=== PATIENT | male | born 1980 ===

== ENCOUNTER → 2020-06-04 11:30 | Outpatient (CLI) | payer MEDICARE, SELFPAY ==
[2020-06-05 18:30] LABS: COVID19 Sendout Not Detected (Not Detected)
== END ==
PROVIDERS: Visit Provider Physician Assistant
DX: Z11.59 Encounter for screening for other viral diseases (principal)
CPT/HCPCS: 87635

== ENCOUNTER → 2020-08-08 16:05 | Outpatient (CLI) | payer MEDICARE, SELFPAY ==
[2020-08-08 16:42] LABS: Add Manual Diff / Slide Review NO; Basophils Absolute Auto 0 /uL (0-100); Basophils Percent Auto 0.4 % (0-2); Eosinophils Absolute Auto 0 /uL (0-450); Eosinophils Percent Auto 0.7 % (2-4); Hematocrit 50.8 % (41-53); Hemoglobin 17.2 g/dL (13.5-17.5); Lymphocytes Absolute Auto 1600 /uL (1100-4500); Lymphocytes Percent Auto 26.9 % (25-40); Mean Corpuscular HGB Conc 33.9 % (30-36); Mean Corpuscular Hemoglobin 31.3 PG (26-34); Mean Corpuscular Volume 92.3 fL (80-100); Monocytes Absolute Auto 500 /uL (0-900); Monocytes Percent Auto 8.8 % (3-14); Neutrophils Absolute Auto 3700 /uL (1500-7000); Neutrophils Percent Auto 63.2 % (50-75); Platelet Count 228 X10^3/uL (150-400); Red Cell Distribution Width 13.2 % (11.6-14.8); White Blood Cell Count 5.8 X10^3/uL (4.5-11.0)
[2020-08-08 16:55] LABS: Appearance Urine UA CLEAR; Bilirubin Urine UA NEGATIVE (NEGATIVE); Color Urine UA YELLOW; Glucose Urine UA 1+ g/dL (Negative); Ketones Urine UA NEGATIVE (NEGATIVE); Leukocyte Esterase Urine UA NEGATIVE (NEGATIVE); Nitrite Urine UA NEGATIVE (Negative); Occult Blood Urine UA NEGATIVE (Negative); Protein Urine UA NEGATIVE (Negative); Specific Gravity Urine UA >=1.030 (1.000-1.035); Urobilinogen Urine UA 0.2 E.U./dL (0.2); pH Urine UA 5.5 (4.5-8.0)
[2020-08-08 17:03] LABS: Hemoglobin A1C% w Est Avg Glu 6.6 % (4.0-6.0)
[2020-08-08 17:07] LABS: Alanine Aminotransferase 34 IU/L (<50); Albumin 4.5 g/dL (3.5-5.0); Albumin Globulin Ratio 1.4 (1.0-2.8); Alkaline Phosphatase 68 U/L (38-126); Aspartate Aminotransferase 30 IU/L (17-59); BUN Creatinine Ratio 24.2 (6-22); Bilirubin Total 0.5 mg/dL (0.2-1.3); Blood Urea Nitrogen 24 mg/dL (9-20); Calcium 9.4 mg/dL (8.4-10.2); Carbon Dioxide 30 mmol/L (22-32); Chloride 103 mmol/L (98-107); Estimated Glomerular Filt Rate > 60.0 mL/min (>60); Globulin 3.2 g/dL (1.7-4.1); Glucose 116 mg/dL (70-100); HEMOLYSIS < 15 (0-50); Potassium 4.3 mmol/L (3.4-5.1); Sodium 139 mmol/L (137-145); Total Protein 7.7 g/dL (6.3-8.2)
[2020-08-08 17:31] LABS: TSH w/ Reflex to FT4 1.49 uIU/mL (0.47-4.68)
== END ==
PROVIDERS: PCP Family Medicine; Referring Provider Family Medicine; Visit Provider Family Medicine
DX: F98.8 Other specified behavioral and emotional disorders with onset usually occurring in childhood and adolescence (principal); I10 Essential (primary) hypertension; R73.03 Prediabetes
CPT/HCPCS: 36415; 80053; 81003; 83036; 84443; 85025

== ENCOUNTER → 2020-10-30 09:01 | Outpatient (CLI) | payer MEDICARE, SELFPAY ==
--- NOTE | 2020-10-30 10:40 | DIET.PN ---
Diabetes Intake: Initial Assessment Assess: Mr. Spicer is a 40 yom referred for newly diagnosed type 2 diabetes. He has recent hx of HTN w/ tachycardia. Started on metoprolol with some improvement. He reports 2 fainting episodes with some dizziness and frequent tingling in his hands. He does not have a glucometer at this time. He has made significant changes to eating habits since diagnosis including elimination of sugary sweetened beverages, sugar additives and regular consumption of fast food. He does not exercise and admits he does not want to. His is present for today?s appt. She feels he has made good changes, but still eats too much. Pt lives with his brother who cares for him; however patient is able to shop and cook for himself. Labs: Per pt report: A1c: 6.6 Meds: metoprolol Diet: per 24 hr recall: B: cheerios, banana, 2% milk L: chicken and rice D: lean cuisine; crockpot rice, beans, veggies, chicken Sn: apple, cheese or peanuts; popcorn Wt: 138lb Ht: 60in BMI: 27 BP: 138/88 DX: Altered nutrition related laboratory values related to impaired glucose metabolism, lack of previous exposure to nutrition information as evidenced by pt report, diagnosis of diabetes, previous diet high in refined carbohydrates. Intervention: 1. Completed intake assessment. Discussed barriers to care. 2. Discussed pathophysiology of diabetes. Reviewed A1c and its correlation to blood glucose numbers. Discussed recommended BG ranges. 3. Discussed importance of self-monitoring, how often, and when to check. 4. Reviewed hyper/hypoglycemia and treatment. 5. Reviewed safe disposal of equipment (strip/lancets/insulin needles). 6. Created SMART goals for pt self-care and success. 7. Discussed program curriculum outline and class needs based on individual goals. Note: Pt will keep a food and activity record for 1 week. Goal to exercise 3 x/ 30 min. SMART Goals: 1. Pt goal weight of 120-130 through learning carb counting, portion control, label reading, and exercising 30 min/day 5-6 d/wk. Monitor/Evaluate: Pt will attend full DSME program. Basic Nutrition class scheduled for Nov 06.
== END ==
PROVIDERS: PCP Family Medicine; Referring Provider Family Medicine; Visit Provider Family Medicine
DX: E11.9 Type 2 diabetes mellitus without complications (principal); I10 Essential (primary) hypertension; R00.0 Tachycardia, unspecified; Z71.3 Dietary counseling and surveillance; Z68.27 Body mass index [BMI] 27.0-27.9, adult
CPT/HCPCS: G0108

== ENCOUNTER → 2020-11-06 09:04 | Outpatient (CLI) | payer MEDICARE, SELFPAY ==
--- NOTE | 2020-11-06 10:06 | DIET.PN ---
Diabetes: Healthy Eating 1 Intervention: ? Discussed pathophysiology of diabetes and impact of nutrition/diet on blood sugar control.? Discussed fed versus non-fed state.?? ? Reviewed importance of Balance, Variety, and Moderation. ? Discussed the effect of carbohydrates/protein/fat on blood sugar control.? ? Stressed importance of consistent carbohydrate intake at each meal and provided instructions for recommended servings/portions of carbohydrates/protein per meal. Provided educational material. ? Reviewed carbohydrate counting and measuring carbohydrate content via serving sizes and reading nutrition labels.? Provided handouts.?? ? Discussed the difference between simple versus complex carbohydrates and the effect of fiber on blood sugar control.? Discussed various methods to increase fiber content in diet. ? Discussed the plate method for creating more carbohydrate conscious balanced meals. ? Stressed importance of meal timing and not going >4-5 hours between meals. Encouraged adding protein to evening snack to support glucose control overnight. ? Discussed importance of making dietary habits part of lifestyle change.
== END ==
PROVIDERS: PCP Family Medicine; Referring Provider Family Medicine; Visit Provider Family Medicine
DX: E11.9 Type 2 diabetes mellitus without complications (principal); Z71.3 Dietary counseling and surveillance
CPT/HCPCS: G0109

== ENCOUNTER → 2021-01-20 10:01 | Outpatient (CLI) | payer MEDICARE, SELFPAY | PROVIDERS: PCP Family Medicine; Referring Provider Family Medicine; Visit Provider Family Medicine | DX: E11.9 Type 2 diabetes mellitus without complications (principal); Z71.3 Dietary counseling and surveillance | CPT/HCPCS: G0109 ==

== ENCOUNTER → 2021-02-03 09:42 | Outpatient (CLI) | payer MEDICARE, SELFPAY ==
[2021-02-03 10:26] LABS: Alanine Aminotransferase 40 IU/L (<50); Albumin 4.4 g/dL (3.5-5.0); Albumin Globulin Ratio 1.5 (1.0-2.8); Alkaline Phosphatase 67 U/L (38-126); Aspartate Aminotransferase 37 IU/L (17-59); BUN Creatinine Ratio 19.6 (6-22); Bilirubin Total 0.3 mg/dL (0.2-1.3); Blood Urea Nitrogen 19 mg/dL (9-20); Calcium 9.2 mg/dL (8.4-10.2); Carbon Dioxide 29 mmol/L (22-32); Chloride 102 mmol/L (98-107); Estimated Glomerular Filt Rate > 60.0 mL/min (>60); Globulin 2.9 g/dL (1.7-4.1); Glucose 172 mg/dL (70-100); HEMOLYSIS < 15 (0-50); Hemoglobin A1C% w Est Avg Glu 6.1 % (4.0-6.0); Potassium 4.2 mmol/L (3.4-5.1); Sodium 137 mmol/L (137-145); Total Protein 7.3 g/dL (6.3-8.2)
--- NOTE | 2021-02-03 11:22 | DIET.PN ---
DIABETES Nutrition Initial Assessment:? ASSESS:?? Mr. Spicer is a 40 yom?referred for type 2 diabetes seen as part of DSME program. He has been monitoring his fasting and evening glucose occasionally. He admits has not been following his eating plan for the last few months. Has gone back to soda, juice, cookies, and candy. He has a gym membership, but only goes a few times a month for a few minutes. His mother joins him today frustrated with his lack of motivation for improving his health. New labs were completed today. ??? LABS: Per pt report:? A1c: 6.6 ? MEDS:??no change ? DIET: Per 24-hour recall:? B: waffles, banana, milk L: chicken with rice D: lean cuisine; subway sandwich Sn: popcorn, cookies, candy Eating Out: commissary several times/ wk Changes in Appetite: larger portions Nutrition Supplements: na ? Weight: 141lb Height: 60in BMI: ? 27.5 ? Exercise:? rarely NUTRITION DX 1. Altered Nutrition related labs related to impaired glucose metabolism, lack of previous exposure to accurate nutrition information as evidenced by pt report, dx of diabetes, previous diet high in refined carbohydrates.? INTERVENTION(s): 1. Reviewed pathophysiology of diabetes and impact of nutrition/diet on blood sugar control.? Discussed fed versus non-fed state.?? 2. Discussed the effect of carbohydrates/protein/fat on blood sugar control.? Stressed importance of consistent carbohydrate intake at each meal and provided instructions for recommended servings/portions of carbohydrates/protein per meal. Provided pt with educational material. 3. Reviewed carbohydrate counting and measuring carbohydrate content via serving sizes and reading nutrition labels.? Provided handouts.?? 4. Discussed the difference between simple versus complex carbohydrates and the effect of fiber on blood sugar control.? Discussed various methods to increase fiber content in diet. 5. Stressed importance of meal timing and not going >4-5 hours between meals. Encouraged adding protein to evening snack to support glucose control overnight. Patient agreeable. 6. Discussed healthy weight loss goals of 1-2lbs per week through diet and exercise.? Pt agreeable to walking at least 30 minutes daily. 7. Recommend monitoring fasting and alternating 2 hr PP mealtime glucose. MONITOR/EVALUATE: Anticipate fair compliance. Pt will f/u after new labs.
== END ==
PROVIDERS: PCP Family Medicine; Referring Provider Family Medicine; Visit Provider Family Medicine
DX: F98.8 Other specified behavioral and emotional disorders with onset usually occurring in childhood and adolescence (principal); I10 Essential (primary) hypertension; E11.9 Type 2 diabetes mellitus without complications
CPT/HCPCS: 36415; 80053; 83036; G0109

== ENCOUNTER → 2021-02-11 10:59 | Outpatient (CLI) | payer MEDICARE, SELFPAY ==
[2021-02-11] MEDS: COVID-19 VACC, Ad26(JANSSEN)/PF 0.5 ML IM (11:08)
== END ==
PROVIDERS: PCP Family Medicine; Visit Provider Internal Medicine
DX: Z23 Encounter for immunization (principal)
CPT/HCPCS: 0031A; 91303

== ENCOUNTER → 2021-05-27 10:06 | Outpatient (CLI) | payer MEDICARE, SELFPAY ==
[2021-05-27 11:37] LABS: Alanine Aminotransferase 49 IU/L (<50); Albumin 4.7 g/dL (3.5-5.0); Albumin Globulin Ratio 1.7 (1.0-2.8); Alkaline Phosphatase 62 U/L (38-126); Aspartate Aminotransferase 39 IU/L (17-59); BUN Creatinine Ratio 19.4 (6-22); Bilirubin Total 0.5 mg/dL (0.2-1.3); Blood Urea Nitrogen 19 mg/dL (9-20); Calcium 9.9 mg/dL (8.4-10.2); Carbon Dioxide 30 mmol/L (22-32); Chloride 100 mmol/L (98-107); Estimated Glomerular Filt Rate > 60.0 mL/min (>60); Globulin 2.7 g/dL (1.7-4.1); Glucose 145 mg/dL (70-100); HEMOLYSIS < 15 (0-50); Potassium 4.4 mmol/L (3.4-5.1); Sodium 139 mmol/L (137-145); Total Protein 7.4 g/dL (6.3-8.2)
[2021-05-27 11:56] LABS: Hemoglobin A1C% w Est Avg Glu 6.7 % (4.0-6.0)
== END ==
PROVIDERS: PCP Family Medicine; Referring Provider Family Medicine; Visit Provider Family Medicine
DX: E11.9 Type 2 diabetes mellitus without complications (principal); I10 Essential (primary) hypertension
CPT/HCPCS: 36415; 80053; 83036

== ENCOUNTER → 2021-11-16 10:06 | Outpatient (CLI) | payer OTHER, SELFPAY ==
[2021-11-16 12:43] LABS: Hemoglobin A1C% w Est Avg Glu 8.1 % (4.0-6.0)
[2021-11-16 13:35] LABS: Alanine Aminotransferase 37 IU/L (<50); Albumin 4.8 g/dL (3.5-5.0); Albumin Globulin Ratio 1.5 (1.0-2.8); Alkaline Phosphatase 63 U/L (38-126); Aspartate Aminotransferase 34 IU/L (17-59); BUN Creatinine Ratio 17.2 (6-22); Bilirubin Total 0.6 mg/dL (0.2-1.3); Blood Urea Nitrogen 17 mg/dL (9-20); Carbon Dioxide 24 mmol/L (22-32); Chloride 103 mmol/L (98-107); Estimated Glomerular Filt Rate > 60.0 mL/min (>60); Globulin 3.3 g/dL (1.7-4.1); Glucose 151 mg/dL (70-100); HEMOLYSIS < 15 (0-50); Potassium 3.9 mmol/L (3.4-5.1); Sodium 137 mmol/L (137-145); Total Protein 8.1 g/dL (6.3-8.2)
== END ==
PROVIDERS: PCP Family Medicine; Referring Provider Family Medicine; Visit Provider Family Medicine
DX: E11.9 Type 2 diabetes mellitus without complications (principal); I10 Essential (primary) hypertension
CPT/HCPCS: 36415; 80053; 83036

== ENCOUNTER → 2022-02-25 09:12 | Outpatient (CLI) | payer OTHER, SELFPAY ==
--- NOTE | 2022-02-25 11:17 | DIAB.MNT ---
Initial Diabetes Medical Nutrition Therapy Assessment Name: Jaleel Spicer Date: 02/25/22 Time: 918-265o Dx: Type II Diabetes Provider: Riaz Marmolejo presents for initial visit regarding T2DM. Jaleel has PMH of cognitive impairment. Has worked with previous [facility] and attended classes. Has base knowledge of what impacts BG, but could benefit from additional education regarding carb foods, portions, and exercise/phys activity. 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 Supportive parents. Lives with brother. States he thinks he just needs to eat less. Diet recall indicates potential for high carb intake with beverage choices and cereal. Diet Recall: 8a: cereal, milk 1p: salad 3p: soup, chicken, 2 crackers 8p: chicken, 1/2c mac 830p: 4-6c popcorn Beverages: water, 1x per week juice, coffee with greenlandic vanilla creamer x 4 Anthropometrics: Ht: 5' Wt: 148# reported Weight history: highest wt 156# reportedly Physical Activity: No program. States his parents want him to go to the gym, but he does not want to go. Enjoys walking the beach or biking on days off sometimes. Has 60 min work break, sits most of the time. Self-Monitoring Blood Glucose: H/o SMBG, but not currently checking consistently. Did not bring log book or meter. States BG often 90-150 mg/dL. Diabetes Medications: 500 mg Metformin BID -- denies SE Pertinent Labs: Recent HgA1c 8.1% Past Medical History: (Last Updated 12/30/21 @ 10:27 by Aaron Mello, DO) ADD (attention deficit disorder) Chicken pox Child Epididymitis Hypertension Pre-diabetes Tachycardia Type 2 diabetes mellitus Nutrition Rx: Plate Method Nutrition Diagnosis: - Predicted excessive CHO intake r/t nutrition knowledge deficit aeb diet recall and pt report - physical inactivity r/t stage of change aeb pt report - Self monitoring deficit r/t infrequent SMBG aeb pt report Intervention: This participant was very receptive. Provided appropriate educational handouts. Discussed the following topics: Completed intake assessment. SMBG plan Plate Method, which foods are carbs or protein, keeping carbs to 1c or less at meals Recommended servings for carbohydrates at meals and snacks Role of physical activity and easy/enjoyable ways to increase activity Created SMART goals for patient self-care and success. Goals: Check BG before eating each morning Bring BG next visit Measure cereal in morning Walk 10 min on lunch break Follow-up: GLYNN MOSER follow-up in 2-3 weeks Pam Victoria RDN, BJES Certified Diabetes Care and Sewer And Cutter Finger [employer] Material P: [phone] Thank you for this referral
== END ==
PROVIDERS: PCP Family Medicine; Referring Provider Family Medicine; Visit Provider Family Medicine
DX: E11.9 Type 2 diabetes mellitus without complications (principal); Z79.84 Long term (current) use of oral hypoglycemic drugs; Z71.3 Dietary counseling and surveillance
CPT/HCPCS: 97802

== ENCOUNTER → 2022-03-11 08:39 | Outpatient (CLI) | payer OTHER, SELFPAY ==
--- NOTE | 2022-03-16 11:01 | DIAB.MNTFU ---
Follow-up Diabetes Medical Nutrition Therapy Assessment Name: Jaleel Spicer Date: 03/11/22 Time: 668-790c Dx: Type II Diabetes Jaleel presents for follow-up regarding T2Dm. States he has started checking fasting numbers (see below). Diet recall indicates most carb portions in goal, but limited protein intake. Though he reports some wt loss, according to EMR he has wt gain over the last year. +16# gain over the last year, likely impacting insulin resistance. Reports limited veggies and water intake. Jaleel was late to todays appt which cut our visit short. Anthropometrics: Ht: Wt: Weight history: 11/16/21 153.7# 05/27/21 152.1# 02/03/21 138.2# 10/30/20 137.7# Physical Activity: No program. Showing interest in going to the gym regularly. Self-Monitoring Blood Glucose: FB, 214, 178, 225 Diabetes Medications: 500 mg Metformin BID -- denies SE Pertinent Labs: Recent HgA1c 8.1% Past Medical History: (Last Updated 12/30/21 @ 10:27 by Aaron Mello DO) ADD (attention deficit disorder) Chicken pox Child Epididymitis Hypertension Pre-diabetes Tachycardia Type 2 diabetes mellitus Nutrition Rx: Plate Method Nutrition Diagnosis: - Predicted excessive CHO intake r/t nutrition knowledge deficit aeb diet recall and pt report- improved - physical inactivity r/t stage of change aeb pt report- in progress - Self monitoring deficit r/t infrequent SMBG aeb pt report- improved Intervention: This participant was very receptive. Provided appropriate educational handouts. Discussed the following topics: Blood sugar review and impact of food and physical activity Plate Method review Physical activity plan and progress Created SMART goals for patient self-care and success. 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
== END ==
PROVIDERS: PCP Family Medicine; Referring Provider Family Medicine; Visit Provider Family Medicine
DX: E11.9 Type 2 diabetes mellitus without complications (principal); Z71.3 Dietary counseling and surveillance; Z79.84 Long term (current) use of oral hypoglycemic drugs
CPT/HCPCS: 97803

== ENCOUNTER → 2022-04-01 09:09 | Outpatient (CLI) | payer OTHER, SELFPAY ==
--- NOTE | 2022-04-01 17:25 | DIAB.FU ---
Follow-up Diabetes Education Assessment Name: Jaleel Spicer Date: 04/01/22 Time: [id number] Dx: Type II Diabetes Preferred Learning Style: Hands-on / doing Jaleel presents today for follow-up with his mother, Heena. Heena is very concerned about his diabetes and self care. She reports he is not exercises, eats junk food, seems indifferent about making changes, and is not grooming himself or keeping his home clean, ie mold in bathtub. Reports he may need to live in a fdc, which he is opposed to. Jaleel states he has been trying to be more active, but will sometimes get bored with activity. 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 Physical Activity: gym 3-4 x in the last month reported. Sometimes basketball for <30min Self-Monitoring Blood Glucose: None, last visit consistently elevated FBG. Diabetes Medications: 500 mg Metformin BID Pertinent Labs: Recent HgA1c 8.1% Past Medical History: (Last Updated 12/30/21 @ 10:27 by Aaron Mello DO) ADD (attention deficit disorder) Chicken pox Child Epididymitis Hypertension Pre-diabetes Tachycardia Type 2 diabetes mellitus Intervention: This participant was very receptive. Provided appropriate educational handouts. Discussed the following topics: Nutrition recommendations, avoiding processed snacks Physical activity plan and impact on blood sugars Developed a 6 day physical activity plan of activities he enjoys, 30 min per day Impact of hyperglycemia on quality of life and longevity Ability for him to care for himself and home and how this may impact health Created SMART goals for patient self-care and success. Goals: Start going to the gym each week- not met supervisor pit and auxiliaries celery sticks for snacks- met Drink 3 x16 oz water per day- in progress Exercise every day (gym, walks, bike) - not met Exercise 6 days per week 20-30 min per day- new Keep up on personal hygiene- new Follow-up: GLYNN MOSER follow-up in 3 weeks Given Jaleel' HgA1c and potential for lifestyle changes, he may benefit from increased Metformin dose. Will cont to evaluate. Pam Victoria, GLYNN, SHANTI Certified Diabetes Care and Box Sealing Inspector P: [phone] Thank you for this referral
== END ==
PROVIDERS: PCP Family Medicine; Referring Provider Family Medicine; Visit Provider Family Medicine
DX: E11.9 Type 2 diabetes mellitus without complications (principal); Z71.3 Dietary counseling and surveillance; Z79.84 Long term (current) use of oral hypoglycemic drugs
CPT/HCPCS: G0109

== ENCOUNTER → 2022-04-22 09:28 | Outpatient (CLI) | payer OTHER, SELFPAY ==
--- NOTE | 2022-04-22 17:40 | DIAB.FU ---
Follow-up Diabetes Education Assessment Name: Jaleel Spicer Date: 04/22/22 Time: 930-10a Dx: Type II Diabetes Jaleel presents for T2Dm follow-up. Reports being more conscious of self-care, including hygiene and avoiding junk food. States he wants to eat more vegetables, specifically more carrots. Also enjoys cheese/ nut snack packs, but states he cannot find them in the grocery stores. In review of food documentation, no snacks have been documented. Meals seem to have adequate carb, possible excessive intake on some foods, ie rice. Plans to keep a more detailed food journal for review next visit. Reports motivation for managing DM is not dying and not losing eye sight. This is notable since his mother has voiced that she feels he does not care. Physical Activity: He has increased activity by attending gym 2 x per week and walking 4 x per week. Some basketball. Self-Monitoring Blood Glucose: Brought a few FB, 186 mg/dL. In discussing potential for increasing Metformin with provider, he is not very happy about this. Per PCP note, provider wanted to see him back in 4-6 weeks. Jaleel is overdue for follow-up. Enc him to call provider office to schedule. Diabetes Medications: 500 mg Metformin BID Pertinent Labs: Recent HgA1c 8.1% Past Medical History: (Last Updated 12/30/21 @ 10:27 by Aaron Mello DO) ADD (attention deficit disorder) Chicken pox Child Epididymitis Hypertension Pre-diabetes Tachycardia Type 2 diabetes mellitus Intervention: This participant was very receptive. Provided appropriate educational handouts. Discussed the following topics: Recent blood sugar results and goals Medication management, potential for increases to meet goals Review of general nutrition recommendations and current intake food portions and using reference objects, ie fist, open palm, plate method Physical activity plan and impact on blood sugars Prevention of complications with well managed BG Created SMART goals for patient self-care and success. Goals: Exercise 6 days per week 20-30 min per day- met Keep up on personal hygiene- in progress Look for P3 snack packs at [employer]- new Keep journal with food, exercise, and BG- new Follow-up: GLYNN MOSER follow-up in 2 weeks Pam Victoria RDN, SHANTI Certified Diabetes Care and Congressional Assistant P: [phone] Thank you for this referral
== END ==
PROVIDERS: PCP Family Medicine; Referring Provider Family Medicine; Visit Provider Family Medicine
DX: E11.9 Type 2 diabetes mellitus without complications (principal); Z71.3 Dietary counseling and surveillance; Z79.84 Long term (current) use of oral hypoglycemic drugs
CPT/HCPCS: G0108

== ENCOUNTER → 2022-05-06 08:30 | Outpatient (CLI) | payer OTHER, SELFPAY ==
--- NOTE | 2022-05-19 17:12 | DIAB.MNTFU ---
Addendum entered by Pam Victoria 05/20/22 09:32: Did not realize his Metformin was rx'd for 1000mg pills vs 500mg. Currently rx'd max dose for med, but not taking appropriately. See note for 05/20/22. Original Note: Follow-up Diabetes Medical Nutrition Therapy Assessment Name: Jaleel Spicer Date: 05/06/22 Time: 840-940a Dx: Type II Diabetes Jaleel presents today with his mother, Heena. State he has been walking at the park more often. Was not able to keep a food journal. Heena reports continued concerns about hygiene and his lazy behavior. Reports rice and chicken at dinner recently. Not measuring portions. Heena reports he is eating on the floor in his room. Reports food stashed under his bed. Claims he may still be binging on chips, he denies this. Purchased P3 snacks but has not had them for snacks yet. Anthropometrics: Ht: Wt: 153# weight hx: 11/16/21 153.7# 05/27/21 152.1# 02/03/21 138.2# 10/30/20 137.7# Physical Activity: Reports walking the beach everyday after work. Self-Monitoring Blood Glucose: Did not bring BG readings. Reports FBG of 155 and 170 mg/dL. Diabetes Medications: 500 mg Metformin BID Pertinent Labs: Recent HgA1c 8.1% Past Medical History: (Last Updated 12/30/21 @ 10:27 by Aaron Mello DO) ADD (attention deficit disorder) Chicken pox Child Epididymitis Hypertension Pre-diabetes Tachycardia Type 2 diabetes mellitus Nutrition Rx: Plate Method Nutrition Diagnosis: - Predicted excessive CHO intake r/t nutrition knowledge deficit and distracted eating aeb Heena and pt report - physical inactivity r/t stage of change aeb pt report- improved - Self monitoring deficit r/t infrequent SMBG aeb pt report- in progress Intervention: This participant was very receptive. Provided appropriate educational handouts. Discussed the following topics: Plate Method and portions review using reference objects and measuring cups. Importance of SMBG Physical activity plan and progress Keeping a food journal for review. Impact of distracted eating Created SMART goals for patient self-care and success. Impression: Heena is convinced that Jaleel is very capable of making lifestyle changes for DM but that he is lazy. She seems to employ some tough love tactics in this RD's opinion. She also voices that he may need to be on behavioral medications. It seems he is having difficulty managing food choices on his own. He was managing better when he lived closer to his parents per report. Seems he may benefit from increasing Metformin. Progress on lifestyle change may be limited and/or slow. Today we did discuss that no one can make him implement changes. He has to choose to make changes to diet with DM ed support. He and Heena verbalized understanding. RD has informed PCP of this dynamic. Goals: Look for P3 snack packs at [employer]- met Keep journal with food, exercise, and BG- not met Try having breakfast at dining table Keep food journal for one week Measure carbs 1c at dinner Walk daily Follow-up: GLYNN MOSER follow-up in 2-3 weeks. Pam Victoria RDN, BJES Certified Diabetes Care and Bridge Welder P: [phone] Thank you for this referral
== END ==
PROVIDERS: PCP Family Medicine; Referring Provider Family Medicine; Visit Provider Family Medicine
DX: E11.9 Type 2 diabetes mellitus without complications (principal); Z71.3 Dietary counseling and surveillance
CPT/HCPCS: 97803

== ENCOUNTER → 2022-05-20 09:02 | Outpatient (CLI) | payer OTHER, SELFPAY ==
--- NOTE | 2022-06-02 11:03 | DIAB.MNTFU ---
Follow-up Diabetes Medical Nutrition Therapy Assessment Name: Jaleel Spicer Date: 05/20/22 Time: a Dx: Type II Diabetes Jaleel presents for nutrition check-in for T2DM. He brings his food and BG log. Has increased veggie intake with carrots. Reports he has run out of BG testing strips and plans to buy them out of pocket. Today we called his pharmacy and confirmed an rx ready for pickup driver for 100 strips for 3 months. He plans to pick them up today. Per food journal: B: cereal or eggs and waffles sn: nothing or carrots L: PBJ and carrots or hotdog and carrots D: rice and chicken or pasta or cottage cheese or sandwich Anthropometrics: Wt: 151# today at home weight hx: 11/16/21 153.7# 05/27/21 152.1# 02/03/21 138.2# 10/30/20 137.7# Physical Activity: per journal walking park or beach 3-4 x per week. Reports aiming for daily walks. Self-Monitoring Blood Glucose: Still elevated FBG. Recent readings below. 169, 168, 224, 211, 186, 170, 191, 192, 226, 188 Diabetes Medications: 1000 mg Metformin BID (thought he was taking 500 mg BID previously but rx'd max dose). Currently only taking once per day though. Takes Metformin in the morning and Metoprolol at night. Encouraged him to take Metformin BID. Pertinent Labs: Recent HgA1c 8.1% Past Medical History: (Last Updated 12/30/21 @ 10:27 by Aaron Mello DO) ADD (attention deficit disorder) Chicken pox Child Epididymitis Hypertension Pre-diabetes Tachycardia Type 2 diabetes mellitus Nutrition Rx: Plate Method: 1c carbs, 3-4oz pro, 1/2 plate veggie Nutrition Diagnosis: - Predicted excessive CHO intake r/t nutrition knowledge deficit and distracted eating aeb Heena and pt report- in progress - physical inactivity r/t stage of change aeb pt report- improved - Self monitoring deficit r/t running out of strips aeb pt report- new Intervention: This participant was very receptive. Provided appropriate educational handouts. Discussed the following topics: BG trends in the morning Progress with vegetables Troubleshooting for SMBG supplies with pharmacy Physical activity plan and progress Created SMART goals for patient self-care and success. Goals: Keep journal with food, exercise, and BG- met Try having breakfast at dining table- met Keep food journal for one week - met Measure carbs 1c at dinner- in progress Walk daily - 75% met Take Metformin BID- new Follow-up: GLYNN MOSER follow-up 4 weeks Pam Victoria RDN, CDCES Certified Diabetes Care and Teacher Private P: [phone] Thank you for this referral
== END ==
PROVIDERS: PCP Family Medicine; Referring Provider Family Medicine; Visit Provider Family Medicine
DX: E11.9 Type 2 diabetes mellitus without complications (principal); Z71.3 Dietary counseling and surveillance
CPT/HCPCS: 97803

== ENCOUNTER → 2022-08-19 09:21 | Outpatient (CLI) | payer OTHER, SELFPAY ==
[2022-08-19 10:16] LABS: Hemoglobin A1C% w Est Avg Glu 7.3 % (4.0-6.0)
[2022-08-19 10:36] LABS: Alanine Aminotransferase 32 IU/L (<50); Albumin 4.7 g/dL (3.5-5.0); Albumin Globulin Ratio 1.7 (1.0-2.8); Alkaline Phosphatase 68 U/L (38-126); Aspartate Aminotransferase 26 IU/L (17-59); BUN Creatinine Ratio 14.8 (6-22); Bilirubin Total 0.5 mg/dL (0.2-1.3); Blood Urea Nitrogen 17 mg/dL (9-20); Calcium 9.5 mg/dL (8.4-10.2); Carbon Dioxide 30 mmol/L (22-32); Chloride 101 mmol/L (98-107); Estimated Glomerular Filt Rate > 60 mL/min (>60); Globulin 2.8 g/dL (1.7-4.1); Glucose 132 mg/dL (70-100); HEMOLYSIS < 15 (0-50); Sodium 139 mmol/L (137-145); Total Protein 7.5 g/dL (6.3-8.2)
== END ==
PROVIDERS: PCP Family Medicine; Referring Provider Family Medicine; Visit Provider Family Medicine
DX: E11.9 Type 2 diabetes mellitus without complications (principal)
CPT/HCPCS: 36415; 80053; 83036

== ENCOUNTER → 2022-12-31 09:18 | Outpatient (CLI) | payer OTHER, SELFPAY ==
[2022-12-31 11:06] LABS: Alanine Aminotransferase 33 IU/L (<50); Albumin 4.5 g/dL (3.5-5.0); Albumin Globulin Ratio 1.4 (1.0-2.8); Alkaline Phosphatase 74 U/L (38-126); Aspartate Aminotransferase 26 IU/L (17-59); Bilirubin Total 0.6 mg/dL (0.2-1.3); Blood Urea Nitrogen 13 mg/dL (9-20); Calcium 9.7 mg/dL (8.4-10.2); Carbon Dioxide 28 mmol/L (22-32); Chloride 99 mmol/L (98-107); Cholesterol 306 mg/dL (140-199); Estimated Glomerular Filt Rate > 60 mL/min (>60); Globulin 3.2 g/dL (1.7-4.1); Glucose 206 mg/dL (70-100); HDL Cholesterol 40 mg/dL (40-60); HEMOLYSIS < 15 (0-50); LDL Cholesterol Calculated 204 mg/dL (<100); Potassium 4.3 mmol/L (3.4-5.1); Sodium 139 mmol/L (137-145); Total Protein 7.7 g/dL (6.3-8.2); Triglycerides 309 mg/dL (35-150)
[2023-01-01 06:08] LABS: Labcorp Hemoglobin (Hb) A1c 8.3 % (4.8-5.6)
== END ==
PROVIDERS: PCP Family Medicine; Referring Provider Family Medicine; Visit Provider Family Medicine
DX: E11.9 Type 2 diabetes mellitus without complications (principal); I10 Essential (primary) hypertension
CPT/HCPCS: 36415; 80053; 80061; 83036

== ENCOUNTER → 2025-03-12 16:26 | Outpatient (CLI) | payer OTHER, SELFPAY ==
--- NOTE | 2025-03-12 16:33 | DI.RAD.S_ITS ---
PROCEDURE: XR CHEST 2V INDICATIONS: ERYTHROCYTOSIS, HYPOXEMIA TECHNIQUE: 2 views of the chest were acquired. COMPARISON: None. FINDINGS: Heart, mediastinum and pulmonary vascular: Heart is normal in size and configuration. Mediastinum is unremarkable. Pulmonary vascular is normal. Lungs: Clear Pleural spaces: Normal-no effusions or pneumothorax. Bones and soft tissues: Normal IMPRESSION: Normal chest. Dictated by: Jake Marie M.D. on 03/14/2025 at 12:31 Approved by: Jake Marie M.D. on 03/14/2025 at 12:31
== END ==
LOC: RAD 16:32
PROVIDERS: PCP Family Medicine; Referring Provider Family Medicine; Visit Provider Family Medicine
DX: D75.1 Secondary polycythemia (principal); R79.81 Abnormal blood-gas level
CPT/HCPCS: 71046

== ENCOUNTER → 2025-03-25 12:39 | Outpatient (CLI) | payer OTHER, SELFPAY ==
--- NOTE | 2025-03-25 12:42 | DI.ECHO.S_ITS ---
[facility] : : [address] : : [place] : : [id number] : : Phone: [phone] Echocardiogram Report + + :Name: MALENA MCKEON Study Date: 03/25/2025 Height: 60 in : :[facility] ReadingLocation: Weight: 137 lb : : Gender: Male BSA: 1.6 m2 : :: 1980 Age: 44 yrs BP: 121/85 mmHg: :Reason For Study: ERTHROCYTOSIS : :Ordering Physician: RALPH LEOS : :LUPE Performed By: Taylor Hernandes : :Referring: RALPH LEOS : + + Interpretation Summary 1. The left ventricular contractility is normal. Estimated ejection fraction is greater than 55% with no segmental wall motion abnormalities. No LVH. Normal diastolic function. 2. The right ventricular contractility is normal. 3. All cardiac chambers are of normal size. 4. No significant valvular abnormalities. 5. No obvious intracardiac shunts. 6. No obvious intracardiac masses nor thrombi. 7. No hemodynamically significant pericardial effusion. 8. Low right-sided filling pressures. Conclusion: Normal biventricular function with no significant valvular abnormalities. Procedure: A two-dimensional transthoracic echocardiogram with color flow and Doppler was performed. The study quality was technically adequate. There is no prior echocardiogram noted for this patient. The patient was in sinus rhythm with heart rates between 75-95 bpm during the exam. Left Ventricle: The left ventricle is normal in size and wall thickness. The ejection fraction is estimated to be 55-60%. Diastolic parameters suggest probable normal left ventricular diastolic function and normal filling pressures. Right Ventricle: The right ventricle is normal in size and function. Atria: The left atrial size is normal. Right atrial size is normal. There is no Doppler evidence for an interatrial shunt. Mitral Valve: The mitral valve leaflets appear to open well. There is no mitral regurgitation noted. Aortic Valve: The aortic valve opens well. There is no aortic valve stenosis. No aortic regurgitation is present. Tricuspid Valve: The tricuspid valve leaflets are thin and pliable. There is trace tricuspid regurgitation. Pulmonary artery pressures cannot be estimated because of the lack of a measurable TR jet velocity but the IVC suggests a CVP of around 3 mmHg. Pulmonic Valve: The pulmonic valve is not well seen, but is grossly normal. There is no pulmonic valvular regurgitation. Great Vessels: The aortic root is normal size. The dimensions of the ascending aorta are normal. The IVC is of normal diameter and collapses greater than 50% with a sniff. This suggests a low right atrial pressure of 3 mm Hg. Pericardium/ Pleura There is no pericardial effusion. There is no pleural effusion. MMode/2D Measurements & Calculations LVIDd: 4.4 cm LVOT diam: 1.9 cm LVIDs: 2.7 cm Ao root diam: 2.8 cm FS: 39.1 % asc Aorta Diam: 2.8 cm IVSd: 0.78 cm Ao Arch Diam (Prox Trans): 2.6 cm LVPWd: 0.77 cm LV martinez. diameter/BSA (cm/m^2): 2.8 LV sys. diameter/BSA (cm/m^2): 1.7 LA A2 area: 9.1 cm2 RA long axis: 3.7 cm LA A4 area: 14.7 cm2 RA area: 12.0 cm2 LA length (vol): 4.7 cm RA vol: 33.4 ml LA vol: 24.2 ml RA : 21.0 ml/m2 LA vol index: 15.2 ml/m2 IVC diam: 1.3 cm RVD1 (basal): 3.1 cm RVD2 (mid): 2.8 cm TAPSE: 1.7 cm Doppler Measurements & Calculations Ao V2 max: 120.2 cm/sec LVOT Max Andrew: 98.6 cm/sec Ao V2 mean: 89.8 cm/sec LV V1 max P.9 mmHg Ao max P.8 mmHg LV V1 VTI: 18.0 cm Ao mean P.4 mmHg ABEL(I,D): 2.3 cm2 Ao V2 VTI: 23.3 cm ABEL(V,D): 2.4 cm2 sev ratio: 0.77 ABEL indexed to BSA (cm^2/m^2): 1.4 MV E max andrew: 58.6 cm/sec PA V2 max: 87.4 cm/sec MV A max andrew: 63.1 cm/sec PA V2 mean: 60.6 cm/sec MV E/A: 0.93 PA mean P.7 mmHg Med Peak E' Andrew: 7.9 cm/sec PA pr(Accel): 31.5 mmHg E/E' med: 7.4 Lat Peak E' Andrew: 9.2 cm/sec E/E' lat: 6.4 E/e' average: 6.9 MV dec time: 0.14 sec [facility] 52.9 ml Reading Physician:MARQUISE
== END ==
PROVIDERS: PCP Family Medicine; Referring Provider Family Medicine; Visit Provider Family Medicine
DX: D75.1 Secondary polycythemia (principal); R79.81 Abnormal blood-gas level
CPT/HCPCS: 93306